=== PATIENT | male | born 1960 | race Caucasian/White ===

== ENCOUNTER 2024-03-08 08:49 | Inpatient (IN) | payer MEDICARE, MEDICAID ==
[~2024-03-08] VITALS: Ht 172.7 cm; Wt 73.6 kg
[2024-03-08] MEDS ORDERED: CARV3.12 PO (09:35)
[2024-03-08] MEDS ORDERED: ATOR-429 PO (09:35)
[2024-03-08] MEDS ORDERED: APIX5TAB3 PO (09:35)
[2024-03-08] MEDS ORDERED: ASPI81TA52 PO (09:35)
[2024-03-08] MEDS ORDERED: TIOT4MIS2 (09:35)
[2024-03-08 09:49] LABS: BASOPHILS # (AUTO) 0.1 X10'3 (0-0.2); BASOPHILS % (AUTO) 0.8 % (0-1); EOSINOPHILS # (AUTO) 0.2 X10'3 (0-0.9); EOSINOPHILS % (AUTO) 1.1 % (0-6); HEMATOCRIT 45.8 % (42.0-52.0); HEMOGLOBIN 15.4 g/dl (14.0-17.9); LYMPHOCYTES # (AUTO) 1.2 X10'3 (1.1-4.8); LYMPHOCYTES % (AUTO) 8.7 % (21-51); MEAN CORPUSCULAR HEMOGLOBIN 30.4 PG (27.0-31.0); MEAN CORPUSCULAR HGB CONC 33.6 g/dL (33.0-36.5); MEAN CORPUSCULAR VOLUME 90.5 FL (78-98); MEAN PLATELET VOLUME 9.1 FL (7.4-10.4); MONOCYTES # (AUTO) 0.9 X10'3 (0-0.9); MONOCYTES % (AUTO) 6.7 % (2-12); NEUTROPHILS # (AUTO) 11.3 X10'3 (1.8-7.7); NEUTROPHILS % (AUTO) 82.7 % (42-75); PLATELET COUNT 192 X10'3 (140-440); RED BLOOD COUNT 5.06 X10'6 (4.70-6.10); RED CELL DISTRIBUTION WIDTH 13.6 % (11.5-14.5); WHITE BLOOD COUNT 13.7 X10'3 (4.5-11.0)
[2024-03-08] MEDS: normal saline 1000ml 1,000 ML IV ONE (10:02)
[2024-03-08 10:03] LABS: ALANINE AMINOTRANSFERASE 29 U/L (12-78); ALBUMIN 3.1 G/DL (3.4-5.0); ALBUMIN/GLOBULIN RATIO 0.9 (1.1-1.5); ALKALINE PHOSPHATASE 102 IU/L (46-116); ANION GAP 12 (8-16); ASPARTATE AMINO TRANSFERASE 30 U/L (10-37); BILIRUBIN,TOTAL 0.8 MG/DL (0.1-1.0); BLOOD UREA NITROGEN 32 MG/DL (7-18); BUN/CREATININE RATIO 14.7 (10.0-20.0); CALCIUM 8.2 MG/DL (8.5-10.1); CHLORIDE 101 MMOL/L (99-107); CREATININE 2.18 MG/DL (0.60-1.10); GLUCOSE 328 MG/DL (70-104); POTASSIUM 4.3 MMOL/L (3.5-5.1); SODIUM 136 MMOL/L (135-145); TOTAL CARBON DIOXIDE 22.8 MMOL/L (24-32); TOTAL PROTEIN 6.5 G/DL (6.4-8.2); eCRCL 32 ML/MIN; eGFR 30 ML/MIN
[2024-03-08 10:10] LABS: PRO BRAIN NATRIURETIC PEPTIDE 4783 PG/ML (0-125)
[2024-03-08] MEDS: aspirin 81mg tab.chew PO ONE (10:43)
[2024-03-08 10:51] LABS: APTT 25 SECONDS (22-32)
[2024-03-08] MEDS: MESSAGE TO NURSING IV ONE ×2 (11:00→19:06)
[2024-03-08] MEDS: heparin 25,000 UNIT/250ml bag 250 ML IV PRN (11:02)
[2024-03-08] MEDS: heparin 10,000 units/1 ML INJ IV ONE (11:03)
[2024-03-08] MEDS: nitroGLYCERIN-Tridil 50MG/D5W 250 ML IV PRN (11:17)
[2024-03-08] MEDS: nitroGLYCERIN 0.4mg SUBLingual tab SL PRN (11:17)
[2024-03-08] MEDS ORDERED: HYDROcodone/acetaminophen 5mg/325mg tablet PO PRN (11:45)
[2024-03-08] MEDS ORDERED: diphenhydrAMINE 25mg capsule PO PRN (11:45)
[2024-03-08] MEDS ORDERED: HYDROcodone/acetaminophen 10/325mg tab PO PRN (11:45)
[2024-03-08] MEDS ORDERED: diphenhydrAMINE 50 mg/ml inj IV PRN (11:45)
[2024-03-08] MEDS ORDERED: morphine 2 MG/ML inj. syringe IV PRN ×2 (11:45)
[2024-03-08] MEDS ORDERED: ipratropium/albuterol 3ml nebule NEB PRN (11:45)
[2024-03-08] MEDS ORDERED: acetaminophen 650mg rectal suppository RC PRN (11:45)
[2024-03-08] MEDS ORDERED: bisacodyl 10mg suppository rectal RC PRN (11:45)
[2024-03-08] MEDS ORDERED: ondansetron/PF 4mg/2ml inj IV PRN (11:45)
[2024-03-08] MEDS ORDERED: acetaminophen 325mg tablet PO PRN (11:45)
[2024-03-08] MEDS ORDERED: ondansetron 4mg rapidly disintigrating tab PO PRN (11:45)
[2024-03-08] MEDS ORDERED: mag hydrox/Alum hydrox/simeth 30ml oral suspension PO PRN (11:45)
[2024-03-08 11:49] LABS: BILIRUBIN,URINE NEGATIVE (Neg); CLARITY,URINE CLEAR (Clear); COLOR,URINE YELLOW (Yellow); GLUCOSE, URINE >=1000 mg/dl (Neg); KETONES,URINE 15 mg/dl (Neg); LEUKOCYTE ESTERASE ,URINE NEGATIVE (Neg); NITRITES, URINE NEGATIVE (Neg); OCCULT BLOOD,URINE NEGATIVE (Neg); PROTEIN,URINE TRACE mg/dl (Neg); UROBILINOGEN,URINE 0.2 E.U/dL (0.2-1.0)
[2024-03-08 11:58] LABS: UA COLLECTION TYPE CLN CATCH MIDSTREAM
[2024-03-08 11:59] LABS: BACTERIA,URINE NONE SEEN /HPF (Neg); HYALINE CASTS 0-3 /LPF (NEGATIVE); MUCUS STRANDS FEW /LPF (Neg); RBC,URINE NONE SEEN /HPF (0-2); SQUAMOUS EPITHELIAL CELL,UR NONE SEEN /LPF (FEW); WBC,URINE NONE SEEN /HPF (0-4)
[2024-03-08] MEDS ORDERED: glucagon, human recombinant 1mg kit SUBCUT PRN (12:00)
[2024-03-08] MEDS ORDERED: DEXTROSE 15 GM of carb/4 tabs (each vial/BOTTLE has 4 tablets) PO PRN ×2 (12:00)
[2024-03-08] MEDS ORDERED: dextrose 50%-water 50ml dispensing syringe IV PRN ×2 (12:00)
[2024-03-08 13:19] LABS: HEMOGLOBIN A1C 10.8 % (4.5-6.2); LIPASE 22 U/L (16-77); MAGNESIUM 2.1 MG/DL (1.5-2.4); PRO BRAIN NATRIURETIC PEPTIDE 3248 PG/ML (0-125); THYROID STIMULATING HORMONE 0.91 ulU/ml (0.34-4.50)
[2024-03-08 13:22] LABS: CREATINE KINASE 178 U/L (39-308); PHOSPHORUS 3.1 MG/DL (2.3-4.5)
[2024-03-08 14:29] VITALS: PULSE 84; RESP 20; O2SAT 98
[2024-03-08] MEDS: normal saline 1000ml 1,000 ML IV SCH (15:29)
[2024-03-08] MEDS: INSULIN LISPRO 100 UNIT/ML INSULN.PEN MULTI-DOSE SQ SCH (17:00)
[2024-03-08 17:15] LABS: APTT 41 SECONDS (22-32)
[2024-03-08 18:06] LABS: URINE AMPHETAMINE SCREEN POSITIVE (Neg); URINE BARBITUATE SCREEN NEGATIVE (Neg); URINE BENZODIAZEPINES SCREEN NEGATIVE (Neg); URINE CANNABINOID SCREEN POSITIVE (Neg); URINE COCAINE SCREEN NEGATIVE (Neg); URINE METHADONE SCREEN NEGATIVE (Neg); URINE OPIATE SCREEN NEGATIVE (Neg); URINE PHENCYCLIDINE SCREEN NEGATIVE (Neg)
[2024-03-08] MEDS: heparin 10,000 units/1 ML INJ IV PRN (19:02)
[2024-03-08] MEDS: docusate sod 100mg capsule PO SCH (20:28)
[2024-03-08] MEDS ORDERED: temazepam 15mg capsule PO PRN (21:00)
[2024-03-08 23:30] VITALS: BP 149/95; PULSE 77; RESP 17; TEMP 98.5; O2SAT 97
[2024-03-09] VITALS (15 sets, daily range): BP systolic 128–196; BP diastolic 69–104; PULSE 72–103; RESP 15–20; TEMP 96.8–99.1; O2SAT 95–100
[2024-03-09] MEDS: MESSAGE TO NURSING IV ONE ×2 (02:25→08:12)
[2024-03-09 07:11] LABS: BASOPHILS # (AUTO) 0.1 X10'3 (0-0.2); BASOPHILS % (AUTO) 1.5 % (0-1); EOSINOPHILS # (AUTO) 0.5 X10'3 (0-0.9); EOSINOPHILS % (AUTO) 5.3 % (0-6); HEMATOCRIT 44.1 % (42.0-52.0); HEMOGLOBIN 15.1 g/dl (14.0-17.9); LYMPHOCYTES # (AUTO) 2.1 X10'3 (1.1-4.8); LYMPHOCYTES % (AUTO) 23.3 % (21-51); MEAN CORPUSCULAR HEMOGLOBIN 30.8 PG (27.0-31.0); MEAN CORPUSCULAR HGB CONC 34.3 g/dL (33.0-36.5); MEAN PLATELET VOLUME 9.2 FL (7.4-10.4); MONOCYTES # (AUTO) 0.7 X10'3 (0-0.9); MONOCYTES % (AUTO) 7.5 % (2-12); NEUTROPHILS # (AUTO) 5.7 X10'3 (1.8-7.7); NEUTROPHILS % (AUTO) 62.4 % (42-75); PLATELET COUNT 153 X10'3 (140-440); RED CELL DISTRIBUTION WIDTH 13.8 % (11.5-14.5); WHITE BLOOD COUNT 9.1 X10'3 (4.5-11.0)
[2024-03-09 07:31] LABS: ALANINE AMINOTRANSFERASE 24 U/L (12-78); ALBUMIN 2.9 G/DL (3.4-5.0); ALBUMIN/GLOBULIN RATIO 0.9 (1.1-1.5); ALKALINE PHOSPHATASE 83 IU/L (46-116); ANION GAP 12 (8-16); ASPARTATE AMINO TRANSFERASE 33 U/L (10-37); BILIRUBIN,TOTAL 0.7 MG/DL (0.1-1.0); BLOOD UREA NITROGEN 27 MG/DL (7-18); BUN/CREATININE RATIO 20.9 (10.0-20.0); CALCIUM 8.1 MG/DL (8.5-10.1); CHLORIDE 107 MMOL/L (99-107); CHOL/HDL RATIO 5.4 (0.00-4.99); CHOLESTEROL 215 MG/DL (0-200); CREATININE 1.29 MG/DL (0.60-1.10); GLUCOSE 175 MG/DL (70-104); HDL CHOLESTEROL 40 MG/DL (35-60); LDL CHOLESTEROL 155 MG/DL (50-100); POTASSIUM 4.2 MMOL/L (3.5-5.1); SODIUM 139 MMOL/L (135-145); TOTAL CARBON DIOXIDE 20.4 MMOL/L (24-32); TRIGLYCERIDES 145 MG/DL (20-135); eCRCL 55 ML/MIN; eGFR 56 ML/MIN
[2024-03-09] MEDS ORDERED: midazolam 1 mg/ML 2ml injection ONE (07:55)
[2024-03-09] MEDS ORDERED: iohexol 350MG/ML 100ml bottle IV ONE (07:55)
[2024-03-09] MEDS ORDERED: LIDOcaine 1% 30ml preserv. free vial ONE (07:55)
[2024-03-09] MEDS ORDERED: fentaNYL/PF 50MCG/1 ML 2ML syringe ONE (07:55)
[2024-03-09] MEDS: aspirin 81mg, enteric-coated 1 TAB TABLET.DR PO SCH (08:12)
[2024-03-09] MEDS: pantoprazole 40mg Tablet.DR PO SCH (08:12)
[2024-03-09] MEDS ORDERED: iohexol 350 MG/ML 50ML vial IV ONE (08:42)
[2024-03-09] MEDS ORDERED: proCHLORperazine 10 MG/2 ml inj IV PRN (09:45)
[2024-03-09] MEDS ORDERED: HYDROcodone/acetaminophen 10/325mg tab PO PRN (09:45)
[2024-03-09] MEDS ORDERED: HYDROcodone/acetaminophen 5mg/325mg tablet PO PRN (09:45)
[2024-03-09] MEDS ORDERED: OXAZEpam 15mg capsule PO PRN (09:45)
[2024-03-09] MEDS ORDERED: ondansetron/PF 4mg/2ml inj IV PRN (09:45)
[2024-03-09] MEDS: clopidogrel 75mg tablet PO SCH (13:07)
[2024-03-09] MEDS: hydrALAZINE 20mg/ml inj. IV PRN (15:44)
[2024-03-10] VITALS (8 sets, daily range): BP systolic 102–165; BP diastolic 50–99; PULSE 82–102; RESP 13–20; TEMP 97.6–99.1; O2SAT 96–99
[2024-03-10] MEDS ORDERED: MESSAGE TO NURSING IV ONE (04:00)
[2024-03-10] MEDS: heparin 10,000 units/1 ML INJ IV ONE (04:24)
[2024-03-10] MEDS: MESSAGE TO NURSING IV ONE ×3 (04:24→20:20)
[2024-03-10] MEDS: HEPARIN DRIP-CARDIAC**PHARMACIST-TO-DOSE IV ONE (04:45)
[2024-03-10 07:32] LABS: BASOPHILS # (AUTO) 0.1 X10'3 (0-0.2); BASOPHILS % (AUTO) 0.6 % (0-1); EOSINOPHILS # (AUTO) 0.4 X10'3 (0-0.9); EOSINOPHILS % (AUTO) 4.7 % (0-6); HEMATOCRIT 44.1 % (42.0-52.0); LYMPHOCYTES % (AUTO) 11.3 % (21-51); MEAN CORPUSCULAR HEMOGLOBIN 30.5 PG (27.0-31.0); MEAN CORPUSCULAR HGB CONC 33.9 g/dL (33.0-36.5); MEAN CORPUSCULAR VOLUME 89.8 FL (78-98); MEAN PLATELET VOLUME 9.1 FL (7.4-10.4); MONOCYTES # (AUTO) 0.8 X10'3 (0-0.9); MONOCYTES % (AUTO) 8.3 % (2-12); NEUTROPHILS # (AUTO) 6.8 X10'3 (1.8-7.7); NEUTROPHILS % (AUTO) 75.1 % (42-75); PLATELET COUNT 154 X10'3 (140-440); RED BLOOD COUNT 4.91 X10'6 (4.70-6.10); WHITE BLOOD COUNT 9.1 X10'3 (4.5-11.0)
[2024-03-10 07:59] LABS: ALANINE AMINOTRANSFERASE 24 U/L (12-78); ALBUMIN/GLOBULIN RATIO 0.9 (1.1-1.5); ALKALINE PHOSPHATASE 83 IU/L (46-116); ANION GAP 13 (8-16); ASPARTATE AMINO TRANSFERASE 26 U/L (10-37); BILIRUBIN,TOTAL 0.8 MG/DL (0.1-1.0); BLOOD UREA NITROGEN 19 MG/DL (7-18); BUN/CREATININE RATIO 15.3 (10.0-20.0); CALCIUM 8.4 MG/DL (8.5-10.1); CHLORIDE 105 MMOL/L (99-107); CREATININE 1.24 MG/DL (0.60-1.10); GLUCOSE 145 MG/DL (70-104); POTASSIUM 3.9 MMOL/L (3.5-5.1); SODIUM 139 MMOL/L (135-145); TOTAL CARBON DIOXIDE 21.1 MMOL/L (24-32); TOTAL PROTEIN 6.2 G/DL (6.4-8.2); eCRCL 57 ML/MIN; eGFR 58 ML/MIN
[2024-03-10] MEDS: acetaminophen 325mg tablet PO PRN (10:47)
[2024-03-10] MEDS: magnesium hydroxide 30ml (MOM) UD suspension PO PRN (19:34)
[2024-03-11] VITALS (9 sets, daily range): BP systolic 114–152; BP diastolic 60–94; PULSE 69–94; RESP 12–18; TEMP 97.2–98.6; O2SAT 96–100
[2024-03-11 02:03] LABS: BASOPHILS # (AUTO) 0.1 X10'3 (0-0.2); BASOPHILS % (AUTO) 0.9 % (0-1); EOSINOPHILS # (AUTO) 0.6 X10'3 (0-0.9); EOSINOPHILS % (AUTO) 8.8 % (0-6); HEMATOCRIT 36.6 % (42.0-52.0); HEMOGLOBIN 12.6 g/dl (14.0-17.9); LYMPHOCYTES # (AUTO) 0.9 X10'3 (1.1-4.8); LYMPHOCYTES % (AUTO) 14.1 % (21-51); MEAN CORPUSCULAR HEMOGLOBIN 31.1 PG (27.0-31.0); MEAN CORPUSCULAR HGB CONC 34.5 g/dL (33.0-36.5); MEAN CORPUSCULAR VOLUME 90.3 FL (78-98); MEAN PLATELET VOLUME 8.6 FL (7.4-10.4); MONOCYTES # (AUTO) 0.6 X10'3 (0-0.9); NEUTROPHILS # (AUTO) 4.4 X10'3 (1.8-7.7); NEUTROPHILS % (AUTO) 67.2 % (42-75); PLATELET COUNT 128 X10'3 (140-440); RED BLOOD COUNT 4.05 X10'6 (4.70-6.10); RED CELL DISTRIBUTION WIDTH 13.7 % (11.5-14.5); WHITE BLOOD COUNT 6.5 X10'3 (4.5-11.0)
[2024-03-11 02:14] LABS: ALANINE AMINOTRANSFERASE 26 U/L (12-78); ALBUMIN 2.5 G/DL (3.4-5.0); ALKALINE PHOSPHATASE 73 IU/L (46-116); ANION GAP 4 (8-16); ASPARTATE AMINO TRANSFERASE 21 U/L (10-37); BILIRUBIN,TOTAL 0.4 MG/DL (0.1-1.0); BLOOD UREA NITROGEN 17 MG/DL (7-18); BUN/CREATININE RATIO 14.7 (10.0-20.0); CALCIUM 6.9 MG/DL (8.5-10.1); CHLORIDE 114 MMOL/L (99-107); CREATININE 1.16 MG/DL (0.60-1.10); GLUCOSE 165 MG/DL (70-104); POTASSIUM 3.4 MMOL/L (3.5-5.1); SODIUM 142 MMOL/L (135-145); TOTAL CARBON DIOXIDE 24.1 MMOL/L (24-32); TOTAL PROTEIN 5.1 G/DL (6.4-8.2); eCRCL 61 ML/MIN; eGFR 63 ML/MIN
[2024-03-11] MEDS: MESSAGE TO NURSING IV ONE ×3 (03:42→20:01)
[2024-03-11] MEDS: heparin 25,000 UNIT/250ml bag 250 ML IV PRN (04:55)
[2024-03-11] MEDS ORDERED: potassium Cl 40MEQ/1/2NS 520ml 520 ML IV PRN (09:10)
[2024-03-11] MEDS ORDERED: magnesium sulf-water 2g/50mL 50 ML IV PRN (09:10)
[2024-03-11] MEDS ORDERED: magnesium Cl slow-release 64mg tablet PO PRN (09:10)
[2024-03-11] MEDS ORDERED: potassium Cl 20 mEq SR tablet PO PRN (09:10)
[2024-03-11] MEDS ORDERED: magnesium sulf-water 4G/100mL 100 ML IV PRN (09:10)
[2024-03-11] MEDS: potassium Cl 20 mEq SR tablet PO PRN (10:21)
[2024-03-11] MEDS: insulin glargine (Lantus) pen - multi-dose SQ ONE (12:20)
[2024-03-11] MEDS ORDERED: LOSA-415 PO (12:22)
[2024-03-11] MEDS ORDERED: LANTUS SUBCUT (12:26)
[2024-03-11] MEDS ORDERED: APIX5TAB3 PO (14:47)
[2024-03-11] MEDS ORDERED: METO-395 PO (17:54)
[2024-03-11] MEDS: metoprolol succinate 25mg (24-HOUR) SR. Tablet PO ONE (20:18)
[2024-03-12 02:00] VITALS: BP 155/83; PULSE 80; RESP 11; TEMP 97.5; O2SAT 99
[2024-03-12] MEDS: MESSAGE TO NURSING IV ONE ×2 (03:16→10:40)
[2024-03-12 06:00] VITALS: BP 145/45; PULSE 77; RESP 14; TEMP 98.6; O2SAT 97
[2024-03-12 07:36] LABS: BASOPHILS # (AUTO) 0.1 X10'3 (0-0.2); BASOPHILS % (AUTO) 1.2 % (0-1); EOSINOPHILS # (AUTO) 0.9 X10'3 (0-0.9); EOSINOPHILS % (AUTO) 10.3 % (0-6); HEMATOCRIT 40.2 % (42.0-52.0); HEMOGLOBIN 13.7 g/dl (14.0-17.9); LYMPHOCYTES # (AUTO) 1.4 X10'3 (1.1-4.8); LYMPHOCYTES % (AUTO) 16.1 % (21-51); MEAN CORPUSCULAR HEMOGLOBIN 30.7 PG (27.0-31.0); MEAN CORPUSCULAR VOLUME 90.3 FL (78-98); MEAN PLATELET VOLUME 9.2 FL (7.4-10.4); MONOCYTES # (AUTO) 0.8 X10'3 (0-0.9); MONOCYTES % (AUTO) 9.4 % (2-12); NEUTROPHILS # (AUTO) 5.5 X10'3 (1.8-7.7); PLATELET COUNT 168 X10'3 (140-440); RED BLOOD COUNT 4.46 X10'6 (4.70-6.10); RED CELL DISTRIBUTION WIDTH 13.6 % (11.5-14.5); WHITE BLOOD COUNT 8.7 X10'3 (4.5-11.0)
[2024-03-12] MEDS: metoprolol succinate 25mg (24-HOUR) SR. Tablet PO SCH (07:40)
[2024-03-12 07:59] LABS: ALANINE AMINOTRANSFERASE 51 U/L (12-78); ALBUMIN 2.7 G/DL (3.4-5.0); ALBUMIN/GLOBULIN RATIO 0.9 (1.1-1.5); ALKALINE PHOSPHATASE 91 IU/L (46-116); ANION GAP 10 (8-16); ASPARTATE AMINO TRANSFERASE 46 U/L (10-37); BILIRUBIN,TOTAL 0.6 MG/DL (0.1-1.0); BLOOD UREA NITROGEN 13 MG/DL (7-18); CALCIUM 8.7 MG/DL (8.5-10.1); CHLORIDE 108 MMOL/L (99-107); CREATININE 1.18 MG/DL (0.60-1.10); GLUCOSE 126 MG/DL (70-104); POTASSIUM 4.3 MMOL/L (3.5-5.1); SODIUM 141 MMOL/L (135-145); TOTAL CARBON DIOXIDE 23.1 MMOL/L (24-32); TOTAL PROTEIN 5.8 G/DL (6.4-8.2); eCRCL 60 ML/MIN; eGFR 62 ML/MIN
[2024-03-12 08:00] VITALS: RESP 14; O2SAT 97
[2024-03-12 11:00] VITALS: BP 143/80; PULSE 73; RESP 14; TEMP 97.7; O2SAT 97
[2024-03-12] MEDS ORDERED: insulin glargine (Lantus) pen - multi-dose SQ SCH (21:00)
== END 2024-03-12 14:56 | disposition home or self-care (01) | DRG 280 ==
LOC: ER 08:50 → ED HOLD 11:50 → PCU 3S 23:17
PROVIDERS: ADMIT Family Medicine; ATTEND Family Medicine
PROC: 4A023N7 Measurement of Cardiac Sampling and Pressure, Left Heart, Percutaneous Approach (ICD-10-PCS; principal; 2024-03-09)
PROC: B2131ZZ Fluoroscopy of Multiple Coronary Artery Bypass Grafts using Low Osmolar Contrast (ICD-10-PCS; 2024-03-09)
PROC: B2111ZZ Fluoroscopy of Multiple Coronary Arteries using Low Osmolar Contrast (ICD-10-PCS; 2024-03-09)
PROC: B2151ZZ Fluoroscopy of Left Heart using Low Osmolar Contrast (ICD-10-PCS; 2024-03-09)
PROC: B4101ZZ Fluoroscopy of Abdominal Aorta using Low Osmolar Contrast (ICD-10-PCS; 2024-03-09)
DX: I21.4 Non-ST elevation (NSTEMI) myocardial infarction (principal); I50.23 Acute on chronic systolic (congestive) heart failure; N17.0 Acute kidney failure with tubular necrosis; I13.0 Hypertensive heart and chronic kidney disease with heart failure and stage 1 through stage 4 chronic kidney disease, or unspecified chronic kidney disease; I42.7 Cardiomyopathy due to drug and external agent; E78.5 Hyperlipidemia, unspecified; I25.10 Atherosclerotic heart disease of native coronary artery without angina pectoris; Z66 Do not resuscitate; E11.22 Type 2 diabetes mellitus with diabetic chronic kidney disease; N18.9 Chronic kidney disease, unspecified; J44.9 Chronic obstructive pulmonary disease, unspecified; I51.3 Intracardiac thrombosis, not elsewhere classified; E11.65 Type 2 diabetes mellitus with hyperglycemia; F15.129 Other stimulant abuse with intoxication, unspecified; Z72.0 Tobacco use; Z79.01 Long term (current) use of anticoagulants; Z79.899 Other long term (current) drug therapy; Z79.82 Long term (current) use of aspirin; Z86.73 Personal history of transient ischemic attack (TIA), and cerebral infarction without residual deficits; Z95.1 Presence of aortocoronary bypass graft
CPT/HCPCS: 36415; 70450; 71045; 80053; 80061; 80305; 81001; 82550; 82948; 83036; 83690; 83735; 83880; 84100; 84443; 84484; 85025; 85730; 87040; 87081; 93005; 93306; 93459; 93567; 94760; 97116; 97161; 97530; 99152; 99153; 99291; A4615; A6258; C1725; C1760; G0378; J0360; J1644; J1815; J2003; J2250; J3010; J3490; J7030; Q9967